=== PATIENT | female | born 1985 | race Caucasian/White ===

== ENCOUNTER 2016-10-06 18:39 | Inpatient (IN) | payer OTHER ==
--- NOTE | ~2016-10-06 | PN ---
Unit #: [id number] #: [id number] Patient: JAYLON FARIA [id number] [facility] [address] [place] [address] [id number] MR#: [id number] NAME: JAYLON FARIA ROOM: [facility] Age: 31 Sex: F Admission Date: 10/06/2016 : 1985 Attending Physician: Chepe Leggett M.D. Admitting Physician: Chepe Leggett M.D. Primary Care Physician: Arya Doctor Not In System [facility] PROGRESS NOTES DATE 10/11/2016 DISCUSSION The patient is abed today, resting comfortably. We continue to await word regarding possible residential chemical dependence treatment. Dictated by... Chepe Leggett M.D. CB/speedy TD: 10/11/2016 14:13 JOB #: [id number] [facility] PROGRESS NOTES X Chepe Leggett MD PROGRESS NOTE
--- NOTE | ~2016-10-06 | PN ---
Unit #: [id number] #: [id number] Patient: JAYLON FARIA [id number] [facility] [address] [place] [address] [id number] MR#: [id number] NAME: JAYLON FARIA ROOM: [facility] Age: 31 Sex: F Admission Date: 10/06/2016 : 1985 Attending Physician: Chepe Leggett M.D. Admitting Physician: Chepe Leggett M.D. Primary Care Physician: Generic Doctor Not In System [facility] PROGRESS NOTES DATE 10/09/2016 DISCUSSION The patient is more active in the therapeutic milieu and states that she is feeling better. She continues to express interest in residential chemical dependence treatment and denies suicidal ideation. Dictated by... Chepe Leggett M.D. CB/speedy TD: 10/09/2016 14:12 JOB #: [id number] [facility] PROGRESS NOTES X Chepe Leggett MD X PROGRESS NOTE
--- NOTE | ~2016-10-06 | PN ---
Unit #: [id number] #: [id number] Patient: JAYLON FARIA [id number] [facility] [address] [place] [address] [id number] I MR#: [id number] NAME: JAYLON FARIA ROOM: [facility] Age: 31 Sex: F Admission Date: 10/06/2016 : 1985 Attending Physician: Chepe Leggett M.D. Admitting Physician: Chepe Leggett M.D. Primary Care Physician: Generic Doctor Not In System [facility] PROGRESS NOTES DATE 10/08/2016 DISCUSSION The patient is continuing to complain of difficulty sleeping and is probably exhibiting symptoms of opioid withdrawal. We will go ahead and initiate COWS protocol, and we will add trazodone on a p.r.n. basis for sleep as well as Vistaril for anxiety. Dictated by... Chepe Leggett M.D. CB/speedy TD: 10/08/2016 14:10 JOB #: [id number] [facility] PROGRESS NOTES X Chepe Leggett MD X PROGRESS NOTE
--- NOTE | ~2016-10-06 | DS ---
Unit #: [id number] #: [id number] Patient: JAYLON FARIA [id number] [facility] [address] [place] [address] [id number] I MR#: [id number] NAME: JAYLON FARIA ROOM: [facility] Age: 31 Sex: F Admission Date: 10/06/2016 : 1985 Discharge Date: 10/13/2016 Attending Physician: Chepe Leggett M.D. Primary Care Physician: Generic Doctor Not In System DISCHARGE SUMMARY ANTICIPATED DATE OF DISCHARGE 10/13/2016. REASON FOR ADMISSION The patient is a 31-year-old , white female, admitted to the [address] [place] [address] unit with a history of methamphetamine use disorder and depression. HOSPITAL COURSE The patient was admitted to the [facility] and placed on suicide precautions. She was continued on previously prescribed Wellbutrin and Zoloft, which she had previously taken was discontinued. The patient instead begun on Lexapro 10 mg q.a.m. The patient's detox was a fairly arduous one with her continuing to complain of detox symptoms up until 10/12/2016. At that time, the patient had learned that arrangements have been made for her to be transferred to [facility] the following day for residential chemical dependency treatment. Discharge was ordered to take place on that date. FINAL DIAGNOSES Methamphetamine use disorder, opioid use disorder, dysthymic disorder, asthma. DISPOSITION ON DISCHARGE The patient is discharged on following medications; Proventil HFA 2 puffs q.4 hours p.r.n. shortness of air, Wellbutrin 100 mg b.i.d. for depression, Lexapro 10 mg daily for depression, Claritin 10 mg daily for environmental allergies, Desyrel 50 mg at h.s. p.r.n. insomnia. DISCHARGE INSTRUCTIONS No dietary or physical restrictions were placed upon the patient at the time of discharge. FOLLOWUP Followup will take place through the auspices of community mental health resources and "[facility]." PROGNOSIS The patient's prognosis is fair. Dictated by... Chepe Leggett M.D. Unit #: [id number] #: [id number] Patient: JAYLON FARIA CB/modl TD: 10/13/2016 01:43 JOB #: [id number] DISCHARGE SUMMARY X Chepe Leggett MD DISCHARGE SUMMARY
--- NOTE | ~2016-10-06 | HP ---
Unit #: [id number] #: [id number] Patient: JAYLON FARIA [id number] [place] [address] [id number] I MR#: [id number] NAME: JAYLON FARIA ROOM: [facility] Age: 31 Sex: F Admission Date: 10/06/2016 : 1985 Attending Physician: Chepe Leggett M.D. Admitting Physician: Chepe Leggett M.D. Primary Care Physician: Generic Doctor Not In System HISTORY AND PHYSICAL HISTORY OF PRESENT ILLNESS Jaylon is a 31 year old admitted to [address] [place] [address] because of her drug use. She snorts heroin. PAST MEDICAL HISTORY 1. Long history of illicit substance abuse to include methamphetamine. 2. History of seasonal allergies. PAST SURGICAL HISTORY Nothing reported. ALLERGIES No known drug allergies. SOCIAL HISTORY Smokes less than 1 pack per day. Denies alcohol. Admits to a long history of illicit substance abuse to include meth. FAMILY HISTORY Medically noncontributory. REVIEW OF SYSTEMS CONSTITUTIONAL: No fever or chills. HEENT: Denies any sore throat, ear pain or runny nose. CARDIOVASCULAR: Denies chest pain, irregular heart rhythm or palpitations. CHEST: Denies shortness of breath or cough. No hemoptysis. GASTROINTESTINAL: Denies nausea, vomiting, diarrhea or chronic constipation. ENDOCRINE: Denies history of increased thirst or urination. No recent significant weight loss or gain. GENITOURINARY: Denies dysuria, frequency, or hematuria. SKIN: Denies any rashes. HEMATOLOGIC: Denies history of increased bleeding or bruising. MUSCULOSKELETAL: Denies any hot, swollen joints. No generalized muscle pain. NEUROLOGIC: Denies problems with vision or speech. No frequent, severe headaches. No numbness, tingling or weakness in any extremities. Denies loss of bladder or bowel control. CURRENT MEDICATIONS 1. Lexapro 10 mg daily. 2. Claritin 10 mg daily. 3. Milk of Magnesia p.r.n. Unit #: [id number] #: [id number] Patient: JAYLON FARIA 4. Maalox p.r.n. 5. Tylenol p.r.n. 6. Proventil inhaler p.r.n. 7. Wellbutrin 150 mg b.i.d. PHYSICAL EXAMINATION GENERAL: Alert, well-nourished, in no apparent distress. VITAL SIGNS: Blood pressure 116/84, heart rate 100, respirations 16, temperature 98.6. WEIGHT: 125. HEIGHT: 5 feet 1 inches. SKIN: Warm and dry without rash or lesion. HEENT: Normocephalic. TMs not viewed. Oral and nasal passages clear. Conjunctivae clear. PERRLA. EOMs intact. NECK: Supple without lymphadenopathy or thyromegaly. HEART: Regular rate and rhythm without murmur. LUNGS: Clear. ABDOMEN: Soft, nontender. : Not done. EXTREMITIES: No evidence of cyanosis, clubbing or edema. Moves all without focal deficit. NEUROLOGICAL: Grossly within normal limits. Cranial Nerves: II: Visual kapoor are intact. III, IV AND : Extraocular movements are intact. Pupils are equal, round and reactive to light. V: Facial sensation is grossly normal. VII: Facial movements and expression are normal. VIII: Auditory acuity grossly intact. IX, X: Uvula is midline. Phonation is normal. XI: Patient shrugs shoulders and turns head normally. XII: Tongue protrudes in the midline. Sensory and Motor Function: Sensory and motor sensation is grossly normal. Motor: moves all extremities well. Coordination: Gait is normal. Deep Tendon Reflexes: Intact. IMPRESSION Psychiatric admission. RECOMMENDATIONS PSYCHIATRIC: Per psychiatrist. MEDICAL: 1. See no contraindications to participate in facility's activities. 2. Continue Claritin and Proventil inhaler. MEDICAL PROGNOSIS Good. MEDICAL CONDITION Stable. Dictated by... Alanna Carlin PMaribelAMaribel-Angie. for Elda Barlow/mickie TD: 10/07/2016 23:22 Unit #: [id number] #: [id number] Patient: JAYLON FARIA JOB #: [id number] HISTORY AND PHYSICAL X Alanna Carlin X HISTORY AND PHYSICAL
--- NOTE | ~2016-10-06 | PN ---
Unit #: [id number] #: [id number] Patient: JAYLON FARIA [id number] [facility] [address] [place] [address] [id number] MR#: [id number] NAME: JAYLON FARIA ROOM: [facility] Age: 31 Sex: F Admission Date: 10/06/2016 : 1985 Attending Physician: Chepe Leggett M.D. Admitting Physician: Chepe Leggett M.D. Primary Care Physician: Arya Doctor Not In System [employer] PROGRESS NOTES DATE 10/10/2016 DISCUSSION The patient is abed today and is not participating in group. When queried why she is not participating the patient states that it is "because of my paranoia, I cannot be around crowds." The patient is gently confronted with the fact that if she goes to a residential treatment facility, group therapy will be a large portion of that treatment course. The patient then asked this physician if he will prescribe "some Ativan or something" secondary to her anxiety, a request which this physician politely declines. The patient states that she has been accepted to [facility] on Thursday. Dictated by... Chepe Leggett M.D. CB/spedey TD: 10/11/2016 07:50 JOB #: [id number] [facility] Queryday NOTES X Chepe Leggett MD PROGRESS NOTE
--- NOTE | ~2016-10-06 | PA ---
Unit #: [id number] #: [id number] Patient: JAYLON FARIA [id number] [facility] [address] [place] [address] [id number] MR#: [id number] NAME: JAYLON FARIA ROOM: [facility] Age: 31 Sex: F Admission Date: 10/06/2016 : 1985 Date of Assessment: 10/07/2016 Attending Physician: Chepe Leggett M.D. Admitting Physician: Chepe Leggett M.D. Primary Care Physician: Generic Doctor Not In System PSYCHIATRIC ASSESSMENT IDENTIFYING INFORMATION The patient is a 31-year-old white female admitted with a history of methamphetamine use, depression and suicidal ideation. INFORMANT(S) Patient. RELIABILITY Fair. CHIEF COMPLAINT None given. HISTORY OF PRESENT ILLNESS The patient is a 31-year-old white female admitted with increasing abuse of methamphetamine. The patient reports that she has become increasingly depressed because of her substance use and had suicidal thoughts prior to coming to this facility. The patient reports multiple previous suicide attempts in the past and has been followed through the auspices of a provider in [place], [place]. Her current psychotropic medications include Zoloft, Wellbutrin and Neurontin. The patient also reports a history of opiate dependence and had been involved in Suboxone clinic but found that too expensive when her insurance would no longer pay for her treatment there. The patient currently complains of severe depression and anxiety. She is continuing to endorse positive suicidal ideation during today's interview. PAST PSYCHIATRIC HISTORY As above. FAMILY HISTORY Noncontributory. SOCIAL HISTORY The patient lives with her parents. 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 She states that because of her drug use that was discontinued but she hopes to return. MEDICAL HISTORY Noncontributory. MEDICATION HISTORY 1. Zoloft. Unit #: [id number] #: [id number] Patient: JAYLON FARIA 2. Neurontin. 3. Wellbutrin. 4. Cetirizine. ALLERGIES None. SUBSTANCE ABUSE HISTORY As noted previously and is a smoker. MENTAL STATUS EXAM At this time, reveals the patient to be a well-developed, well-nourished white female appearing her stated age. She is in no apparent physical distress at time of examination. She is awake, alert, oriented in all spheres. Her mood is mildly dysphoric. Her affect constricted. Speech is generally relevant and coherent. There are no gross deficits in memory or cognition noted. Intelligence is judged to be in the average range based on fund of knowledge. The patient is cooperative throughout the interview. She is currently denying suicidal/homicidal ideation or psychotic features. Judgement and insight appear to be intact. ASSETS AND LIABILITIES Assets, motivation for change. Liabilities, lack of resources. ADMITTING DIAGNOSES 1. Methamphetamine use disorder. 2. Depressive disorder. 3. Major depressive disorder, recurrent, moderate. PSYCHIATRIC PLAN/TREATMENT GOALS The patient remains hospitalized for safety and stabilization. We will watch for any signs of opiate withdrawal though the patient denies recent abuse of this substance. I will discontinue Zoloft as the patient reports that this medication has been ineffective on addressing her depressive and anxiety symptoms and will begin a trial of Lexapro but have spoken with the patient regarding the fact that ongoing abuse of methamphetamine will certainly assure that no medication will effectively address these symptoms. The patient is understanding of this. ESTIMATED LENGTH OF STAY Three to five days. Dictated by... Chepe Leggett M.D. JOSH/mickie TD: 10/07/2016 15:02 JOB #: [id number] Unit #: [id number] #: [id number] Patient: JAYLON FARIA PSYCHIATRIC ASSESSMENT X Chepe Leggett MD X PSYCHIATRIC ASSESSMENT
[2016-10-07 09:27] LABS: BASOPHIL% 0.4 % (0-2.5); EOSINOPHIL# 0.2 X10e3 (0-0.7); EOSINOPHIL% 1.7 % (0.0-7.0); HEMATOCRIT 40.1 % (35.0-45.0); HEMOGLOBIN 13.3 gm/dL (12.0-16.0); LYMPHOCYTE# 2.2 X10e3 (1.0-3.5); LYMPHOCYTE% 18.1 % (17.0-45.0); MEAN CORPUSCULAR HEMOGLOBIN 28.9 PG (28-34); MEAN CORPUSCULAR HGB CONC 33.2 g/dL (30-36); MEAN PLATELET VOLUME 11.5 FL (6.5-11.5); MONOCYTE# 0.5 X10e3 (0-1.0); MONOCYTE% 4.4 % (3.0-12.0); NEUTROPHIL# 9.1 X10e3 (1.5-7.1); NEUTROPHIL% 75.4 % (40-75); PLATELET COUNT 187 X10e3 (140-420); RED CELL DISTRIBUTION WIDTH 12.9 % (11.0-15.5); WHITE BLOOD COUNT 12.1 X10e3 (4.0-10.5)
[2016-10-07 09:37] LABS: DIFF IND NO
[2016-10-07 09:47] LABS: URINE APPEARANCE CLEAR; URINE BILIRUBIN NEG (NEG); URINE BLOOD NEG (NEG); URINE COLOR YELLOW; URINE GLUCOSE NEG (NEG); URINE KETONE NEG (NEG); URINE LEUKOCYTE ESTERASE NEG (NEG); URINE NITRATE NEG (NEG); URINE PROTEIN NEG (NEG); URINE SPECIFIC GRAVITY 1.013 (1.003-1.035); URINE UROBILINOGEN 0.2 MG/DL (NEG)
[2016-10-07 10:03] LABS: THYROID STIMULATING HORMONE 2.41 uIU/ml (0.34-5.60)
[2016-10-07 10:10] LABS: FREE THYROXIN (T4) 0.87 ng/dL (0.58-1.64)
[2016-10-07 10:17] LABS: ALBUMIN SERUM 4.1 g/dL (3.5-5.0); ALKALINE PHOSPHATASE 54 U/L (32-92); ALT (SGPT) 21 U/L (10-40); AST (SGOT) 21 U/L (10-42); BILIRUBIN,TOTAL 0.4 mg/dL (0.2-2.0); BLOOD UREA NITROGEN 7 mg/dL (9-23); BUN/CREATININE RATIO 11.66; CALCIUM SERUM 9.6 mg/dL (8.4-10.2); CARBON DIOXIDE 26 mmol/L (22-31); CHLORIDE 103 mmol/L (100-111); CREATININE SERUM 0.6 mg/dL (0.6-1.4); GLOM FILT RATE Estimated ABOVE60 mL/min (>60); GLUCOSE FASTING 116 mg/dL (70-110); POTASSIUM 3.7 mmol/L (3.5-5.1); PROTEIN TOTAL SERUM 7.2 g/dL (6.0-8.3); SODIUM 139 mmol/L (135-145)
[2016-10-07 10:49] LABS: AMPHETAMINE POS (NEG); BARBITURATES NEG (NEG); BENZODIAZEPINES NEG (NEG); COCAINE NEG (NEG); MARIJUANA NEG (NEG); OPIATES NEG (NEG); TRICYCLIC ANTIDEPRESSANTS NEG (NEG); U METHADONE NEG (NEG)
[2016-10-09 14:41] LABS: HA AB IGM (HEPPAN) Nonreactive (Nonreactive); HB CORE AB IGM (HEPPAN) Nonreactive (Nonreactive); HB S AG (HEPPAN) Nonreactive (Nonreactive); HEP C AB (HEPPAN) Nonreactive (Nonreactive); HEP C AB SIGNAL TO CUTOFF 0.04 ratio (<1.00)
== END 2016-10-13 12:30 | disposition home or self-care (01) | DRG 897 ==
LOC: P2S 18:39
PROVIDERS: Specialist
PROC: HZ2ZZZZ Detoxification Services for Substance Abuse Treatment (ICD-10-PCS; principal; 2016-10-06)
DX: F15.10 Other stimulant abuse, uncomplicated (principal); F11.23 Opioid dependence with withdrawal; R45.851 Suicidal ideations; F33.1 Major depressive disorder, recurrent, moderate; F17.210 Nicotine dependence, cigarettes, uncomplicated; F34.1 Dysthymic disorder; J45.909 Unspecified asthma, uncomplicated
CPT/HCPCS: 80053; 80074; 80307; 81003; 84439; 84443; 84703; 85025; 86592; 87806